=== PATIENT | male | born 1965 | race Caucasian/White ===

== ENCOUNTER 2018-05-19 14:31 | Emergency (ER) | payer MEDICAID ==
[~2018-05-19] VITALS: Ht 170.2 cm; Wt 73.0 kg
[2018-05-19] MEDS ORDERED: KETOROLAC 30MG/ML VIAL IV STA (15:31)
[2018-05-19] MEDS ORDERED: SODIUM CHLORIDE 0.9% 1,000 ML IV ONE (15:31)
[2018-05-19 16:22] LABS: HEMATOCRIT. 42.9 % (42.0-52.0); HEMOGLOBIN. 14.3 g/dL (14.0-18.0); MEAN CORPUSCULAR HEMOGLOBIN 29.8 pg (28.0-32.0); MEAN CORPUSCULAR VOLUME 89.6 fL (80.0-94.0); MEAN PLATELET VOLUME 8.4 fl (7.4-10.4); PLATELET 284 x1000/uL (130-400); RED BLOOD CELL COUNT 4.79 mill/uL (4.7-6.1); RED CELL DISTRIBUTION WIDTH 13.2 % (11.6-14.6)
[2018-05-19 16:23] LABS: CHLORIDE 98 mEq/L (98-107)
[2018-05-19 16:24] LABS: INR 1.1; PROTHROMBIN TIME 11.8 sec (9.6-11.0)
[2018-05-19 16:45] LABS: PLATELET ESTIMATE NORMAL
[2018-05-19] MEDS ORDERED: KETOROLAC 60MG/2ML VIAL IM ONE (17:30)
[2018-05-19 17:31] LABS: CLARITY URINE CLEAR (CLEAR); COLOR URINE DARK YELLOW (YELLOW); KETONES URINE NEGATIVE (NEGATIVE); LEUKOCYTE ESTERASE URINE NEGATIVE (NEGATIVE); NITRITE URINE NEGATIVE (NEGATIVE); OCCULT BLOOD URINE NEGATIVE (NEGATIVE); PH URINE 6.5 (4.5-8.0); PROTEIN URINE NEGATIVE (NEGATIVE); SPECIFIC GRAVITY URINE 1.023 (1.005-1.030); UROBILINOGEN URINE >8.0 E.U./dL (0.2-1.0)
[2018-05-19 19:00] VITALS: BP 113/74
== END 2018-05-19 19:14 | disposition home or self-care (01) ==
LOC: ER 14:31
DX: M25.462 Effusion, left knee (principal); F15.10 Other stimulant abuse, uncomplicated; F32.9 Major depressive disorder, single episode, unspecified
CPT/HCPCS: 36415; 73560; 73700; 80053; 81003; 83605; 85025; 85610; 96372; 99284; J1885; J7030; L1830; Z7610

== ENCOUNTER 2018-05-25 10:47 | Inpatient (IN) | payer MEDICAID ==
[~2018-05-25] VITALS: Ht 182.9 cm; Wt 78.3 kg
[2018-05-25] MEDS ORDERED: KETOROLAC 60MG/2ML VIAL IM ONE (13:45)
[2018-05-25] MEDS ORDERED: KETOROLAC 15MG/ML VIAL IV ONE (14:15)
[2018-05-25 14:59] LABS: BASOPHILS % 0.9 % (0.0-2.0); EOSINOPHILS % 0.4 % (0.0-5.0); HEMATOCRIT. 42.8 % (42.0-52.0); HEMOGLOBIN. 14.6 g/dL (14.0-18.0); LYMPHOCYTES % 8.2 % (20.0-50.0); MEAN CORPUSCULAR HEMOGLOBIN 29.9 pg (28.0-32.0); MONOCYTES % 12.9 % (2.0-8.0); NEUTROPHILS % 77.6 % (40.0-76.0); PLATELET 380 x1000/uL (130-400); RED BLOOD CELL COUNT 4.87 mill/uL (4.7-6.1); RED CELL DISTRIBUTION WIDTH 12.9 % (11.6-14.6)
[2018-05-25 15:06] LABS: CHLORIDE 99 mEq/L (98-107)
[2018-05-25] MEDS ORDERED: LIDOCAINE HCL 1% 20ML VIAL (Pyxis) INJ INJ STA (15:24)
[2018-05-25] MEDS ORDERED: VANCOMYCIN 1 G PREMIX 200 ML IV NR (16:22)
[2018-05-25] MEDS ORDERED: DOCUSATE SODIUM 100MG CAPSULE PO PRN (20:00)
[2018-05-25] MEDS ORDERED: GUAIFENESIN 200MG/10ML SUGAR FREE UDC PO PRN (20:00)
[2018-05-25] MEDS ORDERED: DIPHENHYDRAMINE 50MG/ML VIAL IV PRN (20:00)
[2018-05-25] MEDS ORDERED: MAGNESIUM/ALUMINUM HYDROXIDE/SIMETHICONE 30ML UDC PO PRN (20:00)
[2018-05-25] MEDS ORDERED: IPRATROPIUM/ALBUTEROL 0.5-3(2.5)MG/3ML NEB INH PRN (20:00)
[2018-05-25] MEDS ORDERED: CLONIDINE 0.1MG TABLET PO PRN (20:00)
[2018-05-25 20:25] LABS: PHOSPHORUS 2.6 mg/dL (2.5-4.9)
[2018-05-25 21:45] VITALS: BP 123/71
[2018-05-25 23:00] VITALS: BP 123/71
[2018-05-25] MEDS ORDERED: DEXTROSE 50% WATER 50ML SYRINGE IV PRN (23:45)
[2018-05-26] MEDS: MORPHINE SULFATE 4 MG/ML CPJ (NOT FOR IM USE) IV PRN ×4 (01:49→23:11)
[2018-05-26] MEDS: CEFTRIAXONE 2 G in DEXTROSE 5% WATER 50 ML IV SCH ×2 (03:37→23:10)
[2018-05-26 04:00] VITALS: BP 119/66
[2018-05-26] MEDS: ACETAMINOPHEN 325MG TABLET PO PRN ×2 (04:26→21:02)
[2018-05-26] MEDS: BLOOD SUGAR DIAGNOSTIC STRIP TEST SCH ×4 (06:21→21:09)
[2018-05-26 07:39] LABS: HEMATOCRIT. 37.3 % (42.0-52.0); HEMOGLOBIN. 12.8 g/dL (14.0-18.0); MEAN CORPUSCULAR HEMOGLOBIN 29.9 pg (28.0-32.0); MEAN CORPUSCULAR VOLUME 87.2 fL (80.0-94.0); MEAN PLATELET VOLUME 8.6 fl (7.4-10.4); PLATELET 370 x1000/uL (130-400); RED BLOOD CELL COUNT 4.28 mill/uL (4.7-6.1)
[2018-05-26 07:47] LABS: CHLORIDE 98 mEq/L (98-107)
[2018-05-26] MEDS: INSULIN LISPRO 100 UNITS/ML SUBCUT SCH ×4 (07:50→21:00)
[2018-05-26 07:55] LABS: LDL CHOLESTEROL 75 mg/dL (5-100)
[2018-05-26 07:56] LABS: HDL CHOLESTEROL 26 mg/dL (40-59)
[2018-05-26 08:00] VITALS: BP 115/71
[2018-05-26] MEDS ORDERED: ENOXAPARIN 40MG/0.4ML SYR SUBCUT SCH (09:00)
[2018-05-26] MEDS: HYDROCODONE/ACETAMINOPHEN 10/325MG TABLET PO PRN (10:20)
[2018-05-26] MEDS ORDERED: SODIUM BICARBONATE 4% (2.4MEQ) 5ML VIAL IV ONE (10:44)
[2018-05-26] MEDS ORDERED: LIDOCAINE HCL 1% 20ML VIAL (Pyxis) INJ ONE (10:44)
[2018-05-26 11:07] LABS: PLATELET ESTIMATE NORMAL
[2018-05-26 12:00] VITALS: BP 109/63
[2018-05-26] MEDS ORDERED: ENOXAPARIN 80MG/0.8ML SYR SUBCUT SCH ×3 (13:30→21:00)
[2018-05-26 16:00] VITALS: BP_SYST 115; BP_SYST 127; BP_DIAS 33; BP_DIAS 60
[2018-05-26 16:31] LABS: INR 3.2; PROTHROMBIN TIME 31.4 sec (9.6-11.0)
[2018-05-26] MEDS: DOXYCYCLINE HYCLATE 100MG CAPSULE PO SCH ×2 (17:07→21:02)
[2018-05-26 20:00] VITALS: BP 108/59
[2018-05-26 22:07] LABS: INR 1.3; PARTIAL THROMBOPLASTIN TIME 33.7 sec (23.4-31.0); PROTHROMBIN TIME 13.2 sec (9.6-11.0)
[2018-05-26] MEDS ORDERED: VANCOMYCIN 1500MG in DEXTROSE 5% WATER 250ML IV SCH (23:00)
[2018-05-27] VITALS: BP 114/65
[2018-05-27 04:00] VITALS: BP 114/65
[2018-05-27] MEDS: ONDANSETRON HCL 4MG/2ML INJ IV PRN (05:11)
[2018-05-27] MEDS: MORPHINE SULFATE 4 MG/ML CPJ (NOT FOR IM USE) IV PRN ×5 (05:11→23:31)
[2018-05-27] MEDS: VANCOMYCIN 1250MG in DEXTROSE 5% WATER 250ML IV SCH ×3 (05:17→22:56)
[2018-05-27] MEDS: ENOXAPARIN 80MG/0.8ML SYR SUBCUT SCH (05:33)
[2018-05-27 06:55] LABS: BASOPHILS % 0.5 % (0.0-2.0); HEMATOCRIT. 36.9 % (42.0-52.0); HEMOGLOBIN. 12.3 g/dL (14.0-18.0); LYMPHOCYTES % 8.5 % (20.0-50.0); MEAN CORPUSCULAR HEMOGLOBIN 29.3 pg (28.0-32.0); MONOCYTES % 12.4 % (2.0-8.0); NEUTROPHILS % 77.6 % (40.0-76.0)
[2018-05-27 07:02] LABS: CHLORIDE 99 mEq/L (98-107)
[2018-05-27] MEDS: BLOOD SUGAR DIAGNOSTIC STRIP TEST SCH ×4 (07:21→21:24)
[2018-05-27] MEDS: INSULIN LISPRO 100 UNITS/ML SUBCUT SCH ×4 (07:50→21:00)
[2018-05-27 08:00] VITALS: BP 106/63
[2018-05-27 09:37] LABS: PLATELET ESTIMATE NORMAL
[2018-05-27 09:38] LABS: PLATELET 245 x1000/uL (130-400)
[2018-05-27] MEDS ORDERED: VANCOMYCIN HCL 500 MG/VIAL ONE (11:27)
[2018-05-27] MEDS ORDERED: BACITRACIN 50,000 UNITS/VIAL ONE (11:27)
[2018-05-27] MEDS ORDERED: MIDAZOLAM HCL 2 MG/2 ML VIAL ONE (11:43)
[2018-05-27] MEDS ORDERED: FENTANYL CITRATE/PF 50MCG/ML 2ML VIAL ONE ×2 (11:43→12:48)
[2018-05-27] MEDS ORDERED: PROPOFOL 200MG/20ML VIAL IV ONE (11:43)
[2018-05-27] MEDS ORDERED: ROCURONIUM BROMIDE 10MG/ML VIAL 5ML IV ONE (11:43)
[2018-05-27] MEDS ORDERED: MEPERIDINE HCL/PF 25MG/ML CPJ IV PRN (12:00)
[2018-05-27] MEDS ORDERED: HYDROMORPHONE HCL/PF 2MG/ML CPJ IV PRN (12:00)
[2018-05-27] MEDS ORDERED: MORPHINE SULFATE 4 MG/ML CPJ (NOT FOR IM USE) IV PRN (12:00)
[2018-05-27] MEDS ORDERED: FENTANYL CITRATE/PF 50MCG/ML 2ML VIAL IV PRN (12:00)
[2018-05-27] MEDS ORDERED: ONDANSETRON HCL 4MG/2ML INJ IV PRN (12:00)
[2018-05-27] MEDS ORDERED: SUCCINYLCHOLINE CHLORIDE 200MG/10ML IV ONE (12:47)
[2018-05-27] MEDS ORDERED: ONDANSETRON HCL 4MG/2ML INJ ONE (12:48)
[2018-05-27] MEDS ORDERED: METOCLOPRAMIDE HCL 10MG/2ML VIAL ONE (12:48)
[2018-05-27 16:00] VITALS: BP 112/69
[2018-05-27 20:00] VITALS: BP 122/72
[2018-05-28] VITALS: BP 124/70
[2018-05-28] MEDS: HYDROCODONE/ACETAMINOPHEN 10/325MG TABLET PO PRN ×6 (01:31→23:17)
[2018-05-28] MEDS: CEFTRIAXONE 2 G in DEXTROSE 5% WATER 50 ML IV SCH (01:32)
[2018-05-28 04:00] VITALS: BP 134/75
[2018-05-28] MEDS: ONDANSETRON HCL 4MG/2ML INJ IV PRN (04:03)
[2018-05-28] MEDS: MORPHINE SULFATE 4 MG/ML CPJ (NOT FOR IM USE) IV PRN ×2 (04:05→11:18)
[2018-05-28 05:24] LABS: BASOPHILS % 0.9 % (0.0-2.0); EOSINOPHILS % 0.6 % (0.0-5.0); HEMATOCRIT. 32.9 % (42.0-52.0); HEMOGLOBIN. 11.2 g/dL (14.0-18.0); LYMPHOCYTES % 16.1 % (20.0-50.0); MEAN CORPUSCULAR HEMOGLOBIN 29.6 pg (28.0-32.0); MEAN CORPUSCULAR VOLUME 87.1 fL (80.0-94.0); MEAN PLATELET VOLUME 9.1 fl (7.4-10.4); MONOCYTES % 10.1 % (2.0-8.0); NEUTROPHILS % 72.3 % (40.0-76.0); PLATELET 81 x1000/uL (130-400); RED BLOOD CELL COUNT 3.78 mill/uL (4.7-6.1); RED CELL DISTRIBUTION WIDTH 12.6 % (11.6-14.6)
[2018-05-28 05:31] LABS: CHLAMYDIA TRACHOMATIS NAA Negative (Negative); NEISSERIA GONORRHOEAE NAA Negative (Negative)
[2018-05-28 05:31] LABS: HIV SCREEN 4G Non Reactive (Non Reactive)
[2018-05-28] MEDS: VANCOMYCIN 1250MG in DEXTROSE 5% WATER 250ML IV SCH ×3 (05:43→21:34)
[2018-05-28] MEDS: ENOXAPARIN 80MG/0.8ML SYR SUBCUT SCH ×2 (05:51→18:00)
[2018-05-28] MEDS: BLOOD SUGAR DIAGNOSTIC STRIP TEST SCH ×4 (07:20→21:00)
[2018-05-28] MEDS: INSULIN LISPRO 100 UNITS/ML SUBCUT SCH ×4 (07:50→21:00)
[2018-05-28 08:00] VITALS: BP 109/66
[2018-05-28 08:18] LABS: CHLORIDE 97 mEq/L (98-107)
[2018-05-28 11:15] VITALS: BP 115/60
[2018-05-28 20:00] VITALS: BP 113/64
[2018-05-29] VITALS: BP 112/63
[2018-05-29] MEDS: MORPHINE SULFATE 4 MG/ML CPJ (NOT FOR IM USE) IV PRN ×5 (00:56→20:48)
[2018-05-29] MEDS: CEFTRIAXONE 2 G in DEXTROSE 5% WATER 50 ML IV SCH (01:10)
[2018-05-29 04:00] VITALS: BP 108/58
[2018-05-29] MEDS: VANCOMYCIN 1250MG in DEXTROSE 5% WATER 250ML IV SCH ×3 (06:28→23:37)
[2018-05-29 06:42] LABS: CHLORIDE 96 mEq/L (98-107)
[2018-05-29] MEDS: BLOOD SUGAR DIAGNOSTIC STRIP TEST SCH ×4 (07:50→21:00)
[2018-05-29] MEDS: INSULIN LISPRO 100 UNITS/ML SUBCUT SCH ×4 (07:50→21:00)
[2018-05-29 08:00] VITALS: BP 128/62
[2018-05-29] MEDS: HYDROCODONE/ACETAMINOPHEN 10/325MG TABLET PO PRN ×2 (08:42→21:53)
[2018-05-29 09:17] LABS: BASOPHILS % 0.5 % (0.0-2.0); EOSINOPHILS % 1.3 % (0.0-5.0); HEMATOCRIT. 31.3 % (42.0-52.0); HEMOGLOBIN. 10.5 g/dL (14.0-18.0); LYMPHOCYTES % 11.6 % (20.0-50.0); MEAN CORPUSCULAR HEMOGLOBIN 29.5 pg (28.0-32.0); MEAN CORPUSCULAR VOLUME 87.7 fL (80.0-94.0); MEAN PLATELET VOLUME 8.6 fl (7.4-10.4); MONOCYTES % 13.4 % (2.0-8.0); NEUTROPHILS % 73.2 % (40.0-76.0); PLATELET 308 x1000/uL (130-400); RED BLOOD CELL COUNT 3.57 mill/uL (4.7-6.1); RED CELL DISTRIBUTION WIDTH 12.9 % (11.6-14.6)
[2018-05-29 12:00] VITALS: BP 95/52
[2018-05-29 16:00] VITALS: BP 114/62
[2018-05-29 20:00] VITALS: BP 118/62
[2018-05-30] VITALS: BP 105/58
[2018-05-30 04:00] VITALS: BP 116/58
[2018-05-30] MEDS: VANCOMYCIN 1250MG in DEXTROSE 5% WATER 250ML IV SCH (05:57)
[2018-05-30] MEDS: ACETAMINOPHEN 325MG TABLET PO PRN (06:00)
[2018-05-30] MEDS: MORPHINE SULFATE 4 MG/ML CPJ (NOT FOR IM USE) IV PRN ×3 (06:01→16:26)
[2018-05-30] MEDS: BLOOD SUGAR DIAGNOSTIC STRIP TEST SCH ×4 (07:33→21:00)
[2018-05-30] MEDS: INSULIN LISPRO 100 UNITS/ML SUBCUT SCH ×4 (07:50→21:00)
[2018-05-30 08:00] VITALS: BP 136/81
[2018-05-30 12:00] VITALS: BP 116/62
[2018-05-30 16:00] VITALS: BP 115/63
[2018-05-30] MEDS: VANCOMYCIN 1500MG in DEXTROSE 5% WATER 250ML IV SCH (16:17)
[2018-05-30] MEDS: HYDROCODONE/ACETAMINOPHEN 10/325MG TABLET PO PRN (18:30)
[2018-05-30 20:00] VITALS: BP 112/66
[2018-05-31] VITALS: BP 114/62
[2018-05-31] MEDS: VANCOMYCIN 1500MG in DEXTROSE 5% WATER 250ML IV SCH ×4 (00:10→23:26)
[2018-05-31] MEDS: HYDROCODONE/ACETAMINOPHEN 10/325MG TABLET PO PRN ×3 (00:11→23:35)
[2018-05-31 04:00] VITALS: BP 121/73
[2018-05-31] MEDS: BLOOD SUGAR DIAGNOSTIC STRIP TEST SCH ×4 (06:31→21:00)
[2018-05-31] MEDS: INSULIN LISPRO 100 UNITS/ML SUBCUT SCH ×4 (07:50→21:00)
[2018-05-31 08:00] VITALS: BP 113/59
[2018-05-31] MEDS: MORPHINE SULFATE 4 MG/ML CPJ (NOT FOR IM USE) IV PRN ×3 (10:58→21:04)
[2018-05-31 12:00] VITALS: BP 121/68
[2018-05-31 12:06] LABS: CHLORIDE 102 mEq/L (98-107)
[2018-05-31 12:08] LABS: HEMATOCRIT. 31.7 % (42.0-52.0); HEMOGLOBIN. 10.5 g/dL (14.0-18.0); MEAN CORPUSCULAR HEMOGLOBIN 29.1 pg (28.0-32.0); MEAN CORPUSCULAR VOLUME 87.5 fL (80.0-94.0); MEAN PLATELET VOLUME 8.1 fl (7.4-10.4); PLATELET 286 x1000/uL (130-400); RED BLOOD CELL COUNT 3.62 mill/uL (4.7-6.1); RED CELL DISTRIBUTION WIDTH 12.7 % (11.6-14.6)
[2018-05-31 12:14] LABS: VANCOMYCIN TROUGH 24.1 ug/mL (5.0-10.0)
[2018-05-31 13:13] LABS: PLATELET ESTIMATE NORMAL
[2018-05-31 16:00] VITALS: BP 122/56
[2018-05-31] MEDS: ENOXAPARIN 80MG/0.8ML SYR SUBCUT SCH (18:55)
[2018-05-31 20:00] VITALS: BP 114/62
[2018-06-01] VITALS: BP 127/69
[2018-06-01 04:00] VITALS: BP 119/64
[2018-06-01] MEDS: ENOXAPARIN 80MG/0.8ML SYR SUBCUT SCH ×2 (06:05→21:43)
[2018-06-01] MEDS: VANCOMYCIN 1500MG in DEXTROSE 5% WATER 250ML IV SCH ×3 (06:05→23:48)
[2018-06-01] MEDS: MORPHINE SULFATE 4 MG/ML CPJ (NOT FOR IM USE) IV PRN ×3 (06:14→18:26)
[2018-06-01] MEDS: BLOOD SUGAR DIAGNOSTIC STRIP TEST SCH ×4 (06:24→21:00)
[2018-06-01] MEDS: INSULIN LISPRO 100 UNITS/ML SUBCUT SCH ×4 (06:25→21:00)
[2018-06-01 08:22] VITALS: BP 109/62
[2018-06-01] MEDS: HYDROCODONE/ACETAMINOPHEN 10/325MG TABLET PO PRN ×2 (08:42→21:42)
[2018-06-01] MEDS: ONDANSETRON HCL 4MG/2ML INJ IV PRN (10:40)
[2018-06-01 11:39] VITALS: BP 103/56
[2018-06-01 16:03] VITALS: BP 104/59
[2018-06-01 16:16] LABS: INR 1.2; PROTHROMBIN TIME 12.6 sec (9.6-11.0)
[2018-06-01] MEDS ORDERED: WARFARIN SODIUM 7.5MG TABLET PO SCH (18:00)
[2018-06-01 20:00] VITALS: BP 116/64
[2018-06-02] VITALS: BP 103/58
[2018-06-02] MEDS: MORPHINE SULFATE 4 MG/ML CPJ (NOT FOR IM USE) IV PRN ×3 (00:09→15:25)
[2018-06-02] MEDS: VANCOMYCIN 1500MG in DEXTROSE 5% WATER 250ML IV SCH ×2 (06:11→15:24)
[2018-06-02] MEDS: BLOOD SUGAR DIAGNOSTIC STRIP TEST SCH ×3 (06:20→16:45)
[2018-06-02] MEDS: INSULIN LISPRO 100 UNITS/ML SUBCUT SCH ×3 (06:21→16:45)
[2018-06-02 06:53] LABS: INR 1.1; PROTHROMBIN TIME 11.6 sec (9.6-11.0)
[2018-06-02 07:27] LABS: CHLORIDE 101 mEq/L (98-107)
[2018-06-02 08:21] LABS: HEMATOCRIT. 32.8 % (42.0-52.0); HEMOGLOBIN. 10.8 g/dL (14.0-18.0); MEAN CORPUSCULAR HEMOGLOBIN 28.8 pg (28.0-32.0); MEAN CORPUSCULAR VOLUME 87.9 fL (80.0-94.0); RED BLOOD CELL COUNT 3.73 mill/uL (4.7-6.1); RED CELL DISTRIBUTION WIDTH 12.7 % (11.6-14.6)
[2018-06-02 08:46] LABS: PLATELET ESTIMATE NORMAL
[2018-06-02 08:47] LABS: MEAN PLATELET VOLUME 9.4 fl (7.4-10.4); PLATELET 267 x1000/uL (130-400)
[2018-06-02] MEDS: ENOXAPARIN 80MG/0.8ML SYR SUBCUT SCH (10:55)
[2018-06-02] MEDS: HYDROCODONE/ACETAMINOPHEN 10/325MG TABLET PO PRN (10:55)
[2018-06-02 17:53] VITALS: BP 119/70
[2018-06-02] MEDS ORDERED: WARFARIN SODIUM 7.5MG TABLET PO NR (18:00)
== END 2018-06-02 18:40 | DRG 313 ==
LOC: ER 10:47 → 6EST 17:27 → EDBEDREQ 17:30 → ENRESERV 20:06
PROVIDERS: ADMIT Internal Medicine; ATTEND Internal Medicine
PROC: 0S9D3ZZ Drainage of Left Knee Joint, Percutaneous Approach (ICD-10-PCS; 2018-05-25)
PROC: 02HV33Z Insertion of Infusion Device into Superior Vena Cava, Percutaneous Approach (ICD-10-PCS; 2018-05-26)
PROC: B518ZZA Fluoroscopy of Superior Vena Cava, Guidance (ICD-10-PCS; 2018-05-26)
PROC: B548ZZA Ultrasonography of Superior Vena Cava, Guidance (ICD-10-PCS; 2018-05-26)
PROC: 0SBD0ZZ Excision of Left Knee Joint, Open Approach (ICD-10-PCS; principal; 2018-05-27)
DX: M00.062 Staphylococcal arthritis, left knee (principal); E43 Unspecified severe protein-calorie malnutrition; D69.6 Thrombocytopenia, unspecified; I82.412 Acute embolism and thrombosis of left femoral vein; M19.90 Unspecified osteoarthritis, unspecified site; I82.432 Acute embolism and thrombosis of left popliteal vein; B18.2 Chronic viral hepatitis C; R73.9 Hyperglycemia, unspecified; F32.9 Major depressive disorder, single episode, unspecified; M25.462 Effusion, left knee; F19.10 Other psychoactive substance abuse, uncomplicated; F99 Mental disorder, not otherwise specified; B95.62 Methicillin resistant Staphylococcus aureus infection as the cause of diseases classified elsewhere
CPT/HCPCS: 36415; 36569; 36573; 73564; 80048; 80061; 80202; 82962; 83036; 83735; 84100; 84550; 85651; 86022; 86140; 87070; 87075; 87077; 87389; 87491; 87591; 89060; 93970; 96365; 96366; 96375; 97116; 97162; 97530; 97535; 99285; C1725; J0330; J0696; J1650; J1885; J2250; J2270; J2405; J2704; J2765; J3010; J3370; J3490; J7040; J7050; J7060